=== PATIENT | female | born 1965 | race Caucasian/White ===

== ENCOUNTER 2018-01-26 21:06 | Emergency (ER) | payer OTHER ==
[2018-01-26 21:26] VITALS: O2SAT 98
--- NOTE | 2018-01-26 22:14 | ERPHSYRPT ---
- History of Present Illness Time Seen by Provider: 01/26/18 21:54 Source: patient Exam Limitations: no limitations Patient Subjective Stated Complaint: Pt arrives to ER with c/o left sided hip pain states fell around 1520 today states tripped and landed on hands and knees and was fine till approx 2000 tonight and has had difficulty ambulating. Triage Nursing Assessment: see above Physician History: Pt states, she tripped and fell in the parking lot leaving work at 15:20 PM, she twisted her left hip. She fell on her both knees, but those are pain free, and she was able to ambulate without pain, until about 20:00. she started developing pain in her left hip. She denies direct trauma, no back or neck, head injury, other injury or complaints. Method of Injury: fell Occurred: this afternoon Quality: constant Severity of Pain-Max: moderate Severity of Pain-Current: mild Lower Extremities Pain: hip: left Modifying Factors: Improves With: movement Associated Symptoms: none Allergies/Adverse Reactions: iodine Allergy (Verified 01/26/18 21:27) Cough Penicillins Allergy (Verified 01/26/18 21:27) Anaphylactic Reaction Home Medications: Albuterol Sulfate [Ventolin Hfa] 18 gm IH DAILY 01/26/18 [History] Fluticasone/Vilanterol [Breo Ellipta 100-25 Mcg INH] 1 each IH DAILY 01/26/18 [ History] Naproxen 500 mg [Naprosyn 500 MG] 500 mg PO TID 01/26/18 [History] - Review of Systems Constitutional: No Symptoms Musculoskeletal: Other (left hip pain) All Other Systems: Reviewed and Negative - Past Medical History Pertinent Past Medical History: Yes Neurological History: No Pertinent History Cardiac History: Other Respiratory History: Asthma, Bronchitis, COPD Endocrine Medical History: No Pertinent History Musculoskeletal History: Degenerative Disk Disease, Osteoarthritis Other Medical History: Heart mumur - Past Surgical History Past Surgical History: Yes Female Surgical History: Hysterectomy Other Surgical History: left rotator cuff - Social History Smoking Status: Never smoker Exposure to second hand smoke: No Drug Use: none Patient Lives Alone: No - Female History Hx Now: No - Nursing Vital Signs Nursing Vital Signs: Initial Vital Signs Temperature 98.7 F 01/26/18 21:19 Pulse Rate 87 01/26/18 21:19 Respiratory Rate 20 01/26/18 21:19 Blood Pressure 173/86 01/26/18 21:19 O2 Sat by Pulse Oximetry 98 01/26/18 21:19 Pain Scale Pain Intensity 10 - Physical Exam General Appearance: no apparent distress Eyes, Ears, Nose, Throat Exam: moist mucous membranes Neck Exam: normal inspection, non-tender Cardiovascular/Respiratory Exam: chest non-tender, normal breath sounds, regular rate/rhythm, heart sounds normal, no ecchymosis Gastrointestinal/Abdominal Exam: non-tender, soft Back Exam: normal inspection, No CVA tenderness, No vertebral tenderness Hips Exam: left: pain (painful flexion and rotation, no deformity or bruises, good distal pulses and sensation.) Neuro/Tendon Exam: normal sensation, normal motor functions Mental Status Exam: alert, oriented x 3, cooperative Skin Exam: normal color, warm, dry, No rash SpO2 Interpretation: normal SpO2: 98 Oxygen Delivery: Room Air - Course Nursing assessment & vital signs reviewed: Yes - Radiology Exams Left Hip X-ray Interpretation: Interpreted by me, Negative - CT Exams Left Lower Extremity CT Interpretation: Negative, Tele-radiologist Report, Other (left gluteal intramuscular hematoma) Ordered Tests: Active Orders 24 hr Category Date Time Status HIP UNI (2V) INCL PEL IF DONE Stat Exams 01/26/18 22:03 Taken LOWER EXTREMITY WO CONTRAST [CT] Stat Exams 01/26/18 22:55 Taken Medication Summary Discontinued Medications Generic Name Dose Route Start Last Admin Trade Name Grant PRN Reason Stop Dose Admin Hydrocodone Bitart/Acetaminophen 1 tab 01/26/18 22:55 01/26/18 23:06 Fairplay 5/325 Mg PO 01/26/18 22:56 1 tab STAT ONE Administration Hydrocodone Bitart/Acetaminophen Confirm 01/26/18 22:59 Fairplay 5/325 Mg Administered 01/26/18 23:00 Dose 1 tab .ROUTE .STK-MED ONE - Progress Progress: improved Progress Note: 01/27/18 00:44 I discussed X ray and CT left hip results with her, she states, feels better after PO Fairplay, she is being discharged with instructions to rest x 2-3 days, apply ice or cold compresses to painful area and follow up with her physician in 2-3 days, return if severe pain, sudden leg weakness, numbness or discoloration of the toes! Counseled pt/family regarding: diagnosis, need for follow-up, rad results - Departure Time of Disposition: 00:46 Departure Disposition: Home Clinical Impression: Contusion, hip Qualifiers: Encounter type: initial encounter Laterality: left Qualified Code(s): S70.02XA - Contusion of left hip, initial encounter Condition: Stable Critical Care Time: No Referrals: CORINNE PHILLIPS [Primary Care Provider] - Instructions: Contusion (DC), Lower Extremity Muscle Strain (DC) Additional Instructions: Rest x 2-3 days, apply ice or cold compresses to painful area, return if severe pain, swelling, or sudden leg weakness, discoloration of the toes!
[2018-01-26] MEDS ORDERED: NORCO 5/325 MG PO ONE (22:55)
[2018-01-26] MEDS ORDERED: NORCO 5/325 MG ONE (22:59)
[2018-01-27 00:53] VITALS: BP 142/79; PULSE 78
[2018-01-27] MEDS ORDERED: NORCO 5/325 MG PO ONE (00:59)
[2018-01-27] MEDS ORDERED: NORCO 5/325 MG ONE (01:01)
--- NOTE | 2018-01-27 09:29 | XRAY ---
Indication: Left hip pain following fall. Comparison: None AP pelvis and 2 views of the left hip demonstrates mild degenerative changes of both hips and right pelvic phlebolith. No other bony, articular, or soft tissue abnormalities.
--- NOTE | 2018-01-27 09:29 | XRAY ---
Indication: Pain following fall. Multiple contiguous axial images obtained through the left hip. Sagittal and coronal reformatted images obtained. Comparison: None Left hip articulation intact with mild weightbearing joint space narrowing. There is mild spurring of the superior acetabulum and greater trochanter. No acute fracture or suspicious bony lesions. Visualized noncontrasted soft tissues demonstrates gluteus minimus/medius intramuscular hematoma measuring 5 x 3 cm. Also sigmoid diverticulosis without diverticulitis. Impression: 1. Gluteus minimus/medius intramuscular hematoma. 2. Negative for acute fracture/dislocation. 3. Incidental degenerative changes and sigmoid diverticulosis. Comment: Preliminary interpretation was made by [facility]. No discrepancy. CTDI 63.24
== END 2018-01-27 01:07 | disposition home or self-care (01) ==
LOC: ED 21:06
DX: S70.02XA Contusion of left hip, initial encounter (principal); M25.552 Pain in left hip; W01.0XXA Fall on same level from slipping, tripping and stumbling without subsequent striking against object, initial encounter; Z79.899 Other long term (current) drug therapy
CPT/HCPCS: 73502; 73700; 99284; A9270-GY

== ENCOUNTER 2018-09-28 15:06 | Day surgery (SDC) | payer OTHER ==
[~2018-09-28 15:06] MED LIST: Lactated Ringers 1,000 ML IV ONE
[2018-09-28] MEDS ORDERED: Ketamine HCl 50 MG/ML IV ONE (15:07)
[2018-09-28] MEDS ORDERED: DIPRIVAN 200 MG/20 ML IV ONE (15:07)
[2018-09-28] MEDS ORDERED: Sodium Chloride 0.9(Preservative Free) 10 ML IJ ONE (15:07)
[2018-09-28] MEDS ORDERED: Xylocaine 1% Vial 30 ML PF IJ ONE (15:07)
[2018-09-28] MEDS ORDERED: Depo-Medrol 40 MG/ML IM ONE (15:07)
--- NOTE | 2018-09-28 16:34 | XRAY ---
29 seconds fluoroscopy time in surgery for L4-S1 right transforaminal NIKA.
--- NOTE | 2018-09-28 16:36 | XRAY ---
Indication: Right L4-S1 NIKA. Intraoperative fluoroscopy was provided for 29 seconds. 3 digital spot images submitted for interpretation demonstrates posterior needle tips projecting over the expected course of the right L4 and L5 nerve roots. Small amount of contrast injected for needle tip placement. Correlate with intraoperative findings/report.
== END 2018-09-28 16:39 | disposition home or self-care (01) ==
LOC: SDC-PAIN 15:06
PROVIDERS: ATTEND Psychiatry & Neurology Pain Medicine
DX: M54.16 Radiculopathy, lumbar region (principal); Z79.899 Other long term (current) drug therapy
CPT/HCPCS: 72100; 77003; J1030; J2001; J2704

== ENCOUNTER 2018-10-28 09:41 | Emergency (ER) | payer OTHER ==
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
[2018-10-28] MEDS ORDERED: DUONEB 0.5-3 MG/3 ml Neb IH ONE (10:11)
[2018-10-28] MEDS: DUONEB 0.5-3 MG/3 ml Neb IH ONE (10:18)
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
[2018-10-28] MEDS: Sodium Chloride 0.9% 1000 ML 1,000 ML IV STA (10:38)
[2018-10-28] MEDS ORDERED: Zofran 4 MG/2 ML VIAL ONE (10:39)
[2018-10-28] MEDS ORDERED: solu-MEDROL 125 MG ONE (10:39)
[2018-10-28 10:41] LABS: BASOPHIL % 0.6 % (0.0-0.4); Basophil (Absolute #) 0.05 (0-0.4); Eosinophil % 2.3 % (0.00-5.0); Eosinophil (Absolute #) 0.21 (0-0.5); Granulocyte Absolute (ANC) 4.55 (1.4-6.9); Granulocytes % 50.9 % (36.0-66.0); Hematocrit 39.8 % (35-47); Hemoglobin 12.7 gm/dl (12.0-16.0); Lymphocyte (Absolute #) 3.36 (1.0-4.6); Lymphocytes % 37.5 % (24.0-44.0); Mean Cell Volume 91.3 fl (78-100); Mean Corpuscular Hemoglobin 29.1 pg (26-32); Mean Corpuscular Hgb Concent. 31.9 g/dl (32-36); Mean Platelet Volume 8.7 fl (6-9.5); Monocyte (Absolute #) 0.78 (0.0-1.3); Monocytes % 8.7 % (0.0-12.0); Platelet Count 328 K/mm3 (150-450); Red Blood Count 4.36 M/mm3 (4.1-5.4); Red Cell Distribution Width 13.8 % (11.5-14.0)
[2018-10-28] MEDS: Zofran 4 MG/2 ML VIAL IV ONE (10:52)
[2018-10-28] MEDS: solu-MEDROL 125 MG IV ONE (10:52)
[2018-10-28] MEDS ORDERED: TYLENOL 325 MG ONE (10:54)
[2018-10-28] MEDS: TYLENOL 325 MG PO STA (10:55)
[2018-10-28 11:00] LABS: ALBUMIN 3.9 g/dL (3.5-5.0); ALKALINE PHOSPHATASE 63 U/L (38-126); ANION GAP 12.9 MEQ/L (5-15); BLOOD UREA NITROGEN 14 mg/dL (7-17); CHLORIDE 104 mmol/L (98-107); Carbon Dioxide 29 mmol/L (22-30); Creatinine 1 0.57 mg/dL (0.52-1.04); Glucose 103 mg/dL (74-106); MAGNESIUM 1.8 mg/dL (1.6-2.3); Potassium 3.5 mmol/L (3.5-5.1); SGOT/AST 23 U/L (14-36); SGPT/ALT 23 U/L (0-35); SODIUM 142 mmol/L (137-145); Total Protein 7.3 g/dL (6.3-8.2)
[2018-10-28 11:19] LABS: Appearance CLEAR (CLEAR); Bilirubin NEGATIVE (NEGATIVE); Blood NEGATIVE Ery/ul (0-5); Glucose NEGATIVE (NEGATIVE); Ketones NEGATIVE (NEGATIVE); Leukocyte Esterase NEGATIVE (NEGATIVE); Nitrite NEGATIVE (NEGATIVE); Protein,Urine Dip NEGATIVE (Negative); Specific Gravity 1.006 (1.005-1.025); Urobilinogen NEGATIVE mg/dL (0-1)
[2018-10-28 12:02] LABS: Amphetamine,Urine NEGATIVE (NEGATIVE); Barbiturate,Urine NEGATIVE (NEGATIVE); Benzodiazepine,Urine NEGATIVE (NEGATIVE); Cocaine,Urine NEGATIVE (NEGATIVE); Methadone,Urine NEGATIVE (NEGATIVE); Opiate,Urine NEGATIVE (NEGATIVE); PCP,Urine NEGATIVE (NEGATIVE); THC,Urine NEGATIVE (NEGATIVE)
[2018-10-28 12:25] VITALS: O2SAT 96
[2018-10-28 13:53] VITALS: BP 144/78; PULSE 92
[2018-10-28] MEDS ORDERED: Sodium Chloride 0.9% 1000 ML 1,000 ML ONE (18:05)
== END 2018-10-28 14:30 | disposition home or self-care (01) ==
LOC: ED 09:41
DX: Z77.098 Contact with and (suspected) exposure to other hazardous, chiefly nonmedicinal, chemicals (principal); R51 Headache; R05 Cough; Z79.899 Other long term (current) drug therapy
CPT/HCPCS: 36000; 36415; 71045; 80053; 80307; 81001; 83735; 85025; 93005; 93041; 94150; 94640; 94760; 96360; 96374; 96375; 99284; J2405; J2930; A9270-GY

== ENCOUNTER 2018-11-04 13:01 | Emergency (ER) | payer OTHER ==
[2018-11-04 13:23] VITALS: PULSE 75; O2SAT 99
--- NOTE | 2018-11-04 13:57 | XRAY ---
Indication: Left-sided pain following head injury. Multiple contiguous axial images obtained through the head without contrast. Comparison: None Normal appearing brain parenchyma, ventricles, and bony calvarium. Visualized paranasal sinuses and mastoid air cells are clear. Impression: Normal CT head without contrast exam. CTDI 68.51
[2018-11-04] MEDS ORDERED: TORAdol 30 mg Injection IM ONE (14:39)
[2018-11-04] MEDS ORDERED: TORAdol 30 mg Injection ONE (14:54)
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
[2018-11-04 15:42] VITALS: BP 146/98
== END 2018-11-04 15:38 | disposition home or self-care (01) ==
LOC: ED 13:01
DX: R51 Headache (principal); S00.03XA Contusion of scalp, initial encounter; W22.09XA Striking against other stationary object, initial encounter; J45.909 Unspecified asthma, uncomplicated
CPT/HCPCS: 70450; 96372; 99284; J1885

== ENCOUNTER 2020-03-03 11:11 | Emergency (ER) | payer OTHER ==
--- NOTE | 2020-03-03 11:26 | ERPHSYRPT ---
- History of Present Illness Time Seen by Provider: 03/03/20 11:22 Source: patient Exam Limitations: no limitations Physician History: 54-year-old female with significant past medical history of varicose veins for which she is undergoing treatment started having some bleeding from her right lower leg varicose vein. When patient came to the ER the bleeding was stopped. Patient denies any other symptoms. Timing/Duration: today Associated Symptoms: denies symptoms Allergies/Adverse Reactions: iodine Allergy (Verified 10/28/18 10:29) Cough Penicillins Allergy (Verified 10/28/18 10:29) Anaphylactic Reaction Home Medications: Albuterol Sulfate [Ventolin Hfa] 18 gm IH DAILY 01/26/18 [History] Fluticasone/Vilanterol [Breo Ellipta 100-25 Mcg INH] 1 each IH DAILY 01/26/18 [History] Celecoxib 100 mg [celeBREX 100 MG] 100 mg PO BID 10/28/18 [History] Hx Tetanus, Diphtheria Vaccination/Date Given: Yes Hx Influenza Vaccination/Date Given: No Hx Pneumococcal Vaccination/Date Given: No Travel Risk - International Travel Have you traveled outside of the country in past 3 weeks: No - Coronavirus Screening Are you exhibiting any of the following symptoms?: No Close contact with a COVID-19 positive Pt in past 14-21 Days: No - Review of Systems Constitutional: No Fever, No Chills Eyes: No Symptoms Ears, Nose, & Throat: No Symptoms Respiratory: No Cough, No Dyspnea Cardiac: No Chest Pain, No Edema, No Syncope Abdominal/Gastrointestinal: No Abdominal Pain, No Nausea, No Vomiting, No Diarrhea Genitourinary Symptoms: No Dysuria Musculoskeletal: No Back Pain, No Neck Pain Skin: No Rash Neurological: No Dizziness, No Focal Weakness, No Sensory Changes Psychological: No Symptoms Endocrine: No Symptoms Hematologic/Lymphatic: Easy Bleeding All Other Systems: Reviewed and Negative - Past Medical History Pertinent Past Medical History: Yes Neurological History: No Pertinent History Cardiac History: Other Respiratory History: Asthma, Bronchitis, COPD Endocrine Medical History: No Pertinent History Musculoskeletal History: Degenerative Disk Disease, Osteoarthritis GI Medical History: No Pertinent History History: No Pertinent History Psycho-Social History: No Pertinent History Female Reproductive Disorders: No Pertinent History Other Medical History: Heart mumur - Past Surgical History Past Surgical History: Yes Neuro Surgical History: No Pertinent History Cardiac: No Pertinent History Respiratory: No Pertinent History Gastrointestinal: No Pertinent History Genitourinary: No Pertinent History Musculoskeletal: No Pertinent History Female Surgical History: Hysterectomy Other Surgical History: left rotator cuff - Social History Smoking Status: Never smoker Exposure to second hand smoke: No Drug Use: none Patient Lives Alone: No - Physical Exam General Appearance: no apparent distress, alert Eye Exam: PERRL/EOMI, eyes nml inspection Ears, Nose, Throat Exam: normal ENT inspection, TMs normal, pharynx normal, moist mucous membranes Neck Exam: normal inspection, non-tender, supple, full range of motion Respiratory Exam: normal breath sounds, lungs clear, No respiratory distress Cardiovascular Exam: regular rate/rhythm, normal heart sounds, normal peripheral pulses Gastrointestinal/Abdomen Exam: soft, normal bowel sounds, No tenderness, No mass Back Exam: normal inspection, normal range of motion, No CVA tenderness, No vertebral tenderness Extremity Exam: normal inspection, normal range of motion, pelvis stable, other (superficial vericose veins both lower extrimities) Neurologic Exam: alert, oriented x 3, cooperative, normal mood/affect, nml cerebellar function, nml station & gait, sensation nml, No motor deficits Skin Exam: normal color, warm, dry, No rash Lymphatic Exam: No adenopathy SpO2 Interpretation: normal O2 Delivery: Room Air - Course Nursing assessment & vital signs reviewed: Yes - Progress Progress: improved Counseled pt/family regarding: diagnosis, need for follow-up - Departure Departure Disposition: Home Clinical Impression: Asymptomatic ruptured varicose vein of right lower extremity Condition: Stable Critical Care Time: No Referrals: ANJELICA ALLAN [Primary Care Provider] - Instructions: Varicose Veins and Other Vein Disease in the Legs, Treatment of Varicose Veins of the Leg, Varicose Veins (DC) Additional Instructions: Discharge/Care Plan RAYSALLOYD APARICIO ISABEL was seen on 03/03/20 in the Emergency Room. The patient was counseled regarding Diagnosis,Lab results, Imaging studies, need for follow up and when to return to the Emergency Room. Prescriptions given: Discharge Note I have spoken with the patient and/or caregivers. I have explained the patient's condition, diagnosis and treatment plan based on the information available to me at this time. I have answered the patient's and/or caregiver's questions and addressed any concerns. The patient and/or caregivers have as good understanding of the patient's diagnosis, condition and treatment plan as can be expected at this point. The vital signs have been stable. The patient's condition is stable and appropriate for discharge from the emergency department. The patient will pursue further outpatient evaluation with the primary care phys ician or other designated or consulting physician as outlined in the discharge instructions. The patient and/or caregivers are agreeable to this plan of care and follow-up instructions have been explained in detail. The patient and/or caregivers have received these instruction. The patient/and or caregivers are aware that any significant change in condition or worsening of symptoms should prompt an immediate return to this or the closest emergency department or call 911.
[2020-03-03 11:33] VITALS: BP 149/85; PULSE 76; O2SAT 96
== END 2020-03-03 11:32 | disposition home or self-care (01) ==
LOC: ED 11:11
DX: I83.891 Varicose veins of right lower extremity with other complications (principal); Z79.899 Other long term (current) drug therapy
CPT/HCPCS: 99283

== ENCOUNTER 2022-04-25 13:56 | Emergency (ER) | payer OTHER ==
--- NOTE | 2022-04-25 14:01 | ERPHSYRPT ---
- History of Present Illness Time Seen by Provider: 04/25/22 14:01 Source: patient, family Exam Limitations: no limitations Physician History: This is a 56-year-old obese white female has a history of chronic recurrent vertigo. She is here today because she had an episode of vertigo causing her to fall back and hit her head on the toilet. She states that she had a loss of consciousness for approximately 1 minute. She presents to the emergency department with pain in the back of her head as well as pain in the cervical spine region. She is not on any anticoagulation therapy. Patient does have a history of asthma bronchitis as well as COPD and degenerative joint disease. Occurred: just prior to arrival Severity: mild (Moderate) Head Injury Location: occipital Loss of Consciousness: brief (seconds) Associated Symptoms: denies symptoms Allergies/Adverse Reactions: iodine Allergy (Verified 04/25/22 13:59) Cough Penicillins Allergy (Verified 04/25/22 13:59) Anaphylactic Reaction Home Medications: Albuterol Sulfate [Ventolin Hfa] 18 gm IH DAILY 01/26/18 [History] Hx Tetanus, Diphtheria Vaccination/Date Given: Yes Hx Influenza Vaccination/Date Given: No Hx Pneumococcal Vaccination/Date Given: No Travel Risk - International Travel Have you traveled outside of the country in past 3 weeks: No - Coronavirus Screening Are you exhibiting any of the following symptoms?: No Symptoms: Loss of Taste or Smell - Review of Systems Constitutional: No Symptoms Eyes: No Symptoms Ears, Nose, & Throat: No Symptoms Respiratory: No Symptoms Cardiac: No Symptoms Abdominal/Gastrointestinal: No Symptoms Genitourinary Symptoms: No Symptoms Musculoskeletal: Neck Pain Skin: No Symptoms Neurological: Headache Psychological: No Symptoms Endocrine: No Symptoms Hematologic/Lymphatic: No Symptoms Immunological/Allergic: No Symptoms All Other Systems: Reviewed and Negative - Past Medical History Pertinent Past Medical History: Yes Neurological History: No Pertinent History Cardiac History: Other Respiratory History: Asthma, Bronchitis, COPD Endocrine Medical History: No Pertinent History Musculoskeletal History: Degenerative Disk Disease, Osteoarthritis GI Medical History: No Pertinent History History: No Pertinent History Psycho-Social History: No Pertinent History Female Reproductive Disorders: No Pertinent History Other Medical History: Heart mumur - Past Surgical History Past Surgical History: Yes Neuro Surgical History: No Pertinent History Cardiac: No Pertinent History Respiratory: No Pertinent History Gastrointestinal: No Pertinent History Genitourinary: No Pertinent History Musculoskeletal: No Pertinent History Female Surgical History: Hysterectomy Other Surgical History: left rotator cuff - Social History Smoking Status: Never smoker Exposure to second hand smoke: No Drug Use: none Patient Lives Alone: No - Nursing Vital Signs Nursing Vital Signs: Initial Vital Signs Temperature 97.9 F 04/25/22 14:08 Pulse Rate 79 04/25/22 14:08 Respiratory Rate 18 04/25/22 14:08 Blood Pressure 118/77 04/25/22 14:08 O2 Sat by Pulse Oximetry 98 04/25/22 14:08 Pain Scale Pain Intensity 7 - Lindsay Coma Score Best Eye Response ([place]): (4) open spontaneously Best Verbal Response ([place]): (5) oriented Best Motor Response ([place]): (6) obeys commands Lindsay Total: 15 - Physical Exam General Appearance: no apparent distress, alert, obese Head Injury: swelling (Occipital area. No lacerations), tenderness (In the occipital area to palpation.), No lacerations Eye Exam: bilateral eye: normal inspection, PERRL, EOMI ENT Exam: airway nml, nml ext.inspection, No evidence of ENT injury Neck Exam: supple, trachea midline, full range of motion, normal alignment, paraspinous muscle tender (Bilateral upper to palpation) Cardiovascular/Respiratory Exam: chest non-tender, no respiratory distress Gastrointestinal/Abdominal Exam: non tender Pelvic Exam: not done Rectal Exam: not done Back Exam: normal inspection, normal range of motion, No CVA tenderness, No vertebral tenderness Extremity Exam: non-tender, normal range of motion, normal inspection Mental Status Exam: alert, oriented x 3, 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 Exam: normal hearing, normal speech, PERRL, tongue midline Coordination/Gait Exam: normal gait, normal cerebellar function Motor/Sensory Exam: no motor deficit, no sensory deficit, no pronator drift Skin Exam: normal color, warm, dry Lymphatic Exam: No adenopathy SpO2 Interpretation: normal O2 Delivery: Room Air - Course Nursing assessment & vital signs reviewed: Yes Ordered Tests: Active Orders 24 hr Category Date Time Status CERVICAL SPINE WO CONTRAST [CT] Stat Exams 04/25/22 14:23 Taken HEAD WITHOUT CONTRAST [CT] Stat Exams 04/25/22 14:23 Taken Medication Summary Discontinued Medications Generic Name Dose Route Start Last Admin Trade Name Freq PRN Reason Stop Dose Admin Acetaminophen 650 mg 04/25/22 15:26 04/25/22 15:27 Acetaminophen 325 Mg Tablet PO 04/25/22 15:27 650 mg STAT STA Administration Acetaminophen Confirm 04/25/22 15:27 Acetaminophen 325 Mg Tablet Administered 04/25/22 15:28 Dose 650 mg .ROUTE .STK-MED ONE - Progress Progress: improved, pain not gone completely Progress Note: 04/25/22 16:17 CAT scan of the head shows no acute intracranial abnormality. CAT scan of the cervical spine without contrast shows no acute fractures or subluxation. Counseled pt/family regarding: diagnosis, need for follow-up, rad results - Departure Departure Disposition: Home Clinical Impression: Head injury, Cervical strain Condition: Stable Critical Care Time: No Referrals: ANJELICA ALLAN NP [Primary Care Provider] - Follow up/PCP as directed Additional Instructions: Use Tylenol and ibuprofen for pain control. Take your medication as prescribed. Follow-up with your primary care physician for further evaluation and management. Prescriptions: Orphenadrine Citrate 100 mg [Norflex 100 MG Tablet] 100 mg PO BID #10 tab
[2022-04-25] MEDS ORDERED: TYLENOL 325 MG PO STA (15:26)
[2022-04-25] MEDS ORDERED: TYLENOL 325 MG ONE (15:27)
[2022-04-25 16:25] VITALS: BP 167/101; PULSE 80; O2SAT 95
--- NOTE | 2022-04-25 22:49 | XRAY ---
Indication: Head injury following fall. Loss of consciousness. Chronic vertigo. Multiple contiguous axial images obtained through the head without contrast. Comparison: November 04, 2018 Normal appearing brain parenchyma, ventricles, and bony calvarium for patient's age. Visualized paranasal sinuses and mastoid air cells are clear. Impression: Continued normal CT head without contrast exam. Comment: Preliminary interpretation made by [facility]. No critical discrepancy.
--- NOTE | 2022-04-25 22:51 | XRAY ---
Indication: Pain following fall. Loss of consciousness. Chronic vertigo. Multiple contiguous axial images obtained through the cervical spine. Sagittal and coronal reformatted images obtained. Comparison: None Axial images negative for acute fracture, suspicious bony lesions, or spinal canal stenosis. Minimal/mild C5-C7 degenerative endplate spurring and mild multilevel bilateral degenerative facet arthropathy. Sagittal and coronal reformatted images demonstrates lordotic straightening, positional versus paraspinal spasm. C6-C7 disc space narrowing. No acute compression fracture, subluxation, or jumped facet. Normal appearing craniocervical junction. Visualized noncontrasted soft tissues demonstrates mild right carotid calcifications. Lung apices clear. Impression: 1. Lordotic straightening, positional versus paraspinal spasm. 2. Negative for acute fracture/subluxation. 2. Multilevel degenerative changes. Comment: Preliminary interpretation made by [facility]. No critical discrepancy.
== END 2022-04-25 16:25 | disposition home or self-care (01) ==
LOC: ED 13:56
DX: S09.90XA Unspecified injury of head, initial encounter (principal); S16.1XXA Strain of muscle, fascia and tendon at neck level, initial encounter; W18.39XA Other fall on same level, initial encounter; Y92.002 Bathroom of unspecified non-institutional (private) residence as the place of occurrence of the external cause; R51.9 Headache, unspecified; J44.9 Chronic obstructive pulmonary disease, unspecified; Z79.899 Other long term (current) drug therapy
CPT/HCPCS: 70450; 72125; 99283; A9270-GY